=== PATIENT | male | born 1975 | race Two or more races ===

== ENCOUNTER 2019-07-16 06:56 | Inpatient (IN) | payer MEDICAID ==
[~2019-07-16] VITALS: Ht 182.9 cm; Wt 199.8 kg
[2019-07-16] MEDS ORDERED: FUROSEMIDE 40 MG/4 ML VIAL IV ONE (07:15)
[2019-07-16] MEDS ORDERED: IPRATROPIUM BROM 0.5 MG/2.5ML INH SOL NEB ONE (07:15)
[2019-07-16] MEDS ORDERED: ALBUTEROL SULF 2.5 MG/0.5ML(0.5%) NEB SOLN NEB ONE (07:15)
[2019-07-16 07:45] LABS: Basophils # (auto) 0.1 10 ^3/uL (0-0.2); Eosinophils # (auto) 0.2 10 ^3/uL (0-0.8); Lymphocytes # (auto) 2.1 10 ^3/uL (0.4-5.4); Monocytes # (auto) 0.5 10 ^3/uL (0-1.3); Neutrophils # (auto) 5.6 10 ^3/uL (1.6-8.6); Nucleated Red Blood Cells % 0.1 %; White Blood Cell 8.5 10^3/uL (4.4-10.8)
[2019-07-16] MEDS ORDERED: ONDANSETRON HCL 4 MG/2 ML VIAL IV ONE ×2 (07:45→09:15)
[2019-07-16 07:46] LABS: Basophils % (auto) 0.9 % (0.0-2.0); Eosinophils % (auto) 2.6 % (0.0-7.0); Hematocrit 38.2 % (41.0-53.0); Lymphocytes % (auto) 24.5 % (10.0-50.0); Mean Corpuscular Hemoglobin 24.6 pg (28.0-32.0); Mean Corpuscular Hgb Conc. 31.4 g/dL (32.0-36.0); Mean Corpuscular Volume 78.3 fL (80.0-100.0); Monocytes % (auto) 5.7 % (0.0-12.0); Neutrophils % (auto) 66.3 % (37.0-80.0); Platelet Count (auto) 333 10^3/uL (140-450); Red Blood Cells 4.88 10^6/uL (4.5-5.90); Red Cell Distribution Width 16.2 % (11.8-14.3)
[2019-07-16 07:52] LABS: Albumin 3.8 g/dL (3.4-5.0); BUN/Creatinine Ratio 14.6; Calcium 8.9 mg/dL (8.5-10.1); Potassium 3.6 mmol/L (3.5-5.1)
[2019-07-16 07:55] LABS: INR 0.98 (0.9-1.15); Partial Thromboplastin Time 26.4 sec (23.64-32.05)
[2019-07-16 07:57] LABS: Bilirubin, Total 0.2 mg/dL (0.2-1.0); Total Protein 7.8 g/dL (6.4-8.2)
[2019-07-16 08:50] LABS: Urine Bacteria NONE SEEN /hpf (None Seen); Urine Blood Negative /uL (Negative); Urine Specific Gravity 1.007 (1.001-1.035); Urine WBC <1 /hpf (0 - 3)
[2019-07-16] MEDS ORDERED: SERT-274 PO (08:59)
[2019-07-16] MEDS ORDERED: ATOR10TA52 PO (08:59)
[2019-07-16] MEDS ORDERED: METF-370 PO (08:59)
[2019-07-16] MEDS ORDERED: BECL80AE11 IN (08:59)
[2019-07-16] MEDS ORDERED: LOSA-39 PO (08:59)
[2019-07-16] MEDS ORDERED: DULO20CA PO (08:59)
[2019-07-16] MEDS ORDERED: CHLO25TA22 PO (08:59)
[2019-07-16] MEDS ORDERED: PANT-36 PO (08:59)
[2019-07-16] MEDS ORDERED: INSU1INJ19 SC (08:59)
[2019-07-16] MEDS ORDERED: GLIM4TAB42 PO (08:59)
[2019-07-16] MEDS ORDERED: MONT10TA34 PO (08:59)
[2019-07-16] MEDS ORDERED: AMLO5TAB15 PO (08:59)
[2019-07-16] MEDS ORDERED: INSU100I44 SC (08:59)
[2019-07-16] MEDS ORDERED: MORPHINE SULF INJ 2 MG/ML SYRINGE 1ML IV ONE (09:15)
[2019-07-16] MEDS ORDERED: DEXTROSE (50%) 50ML SYRG IV PRN (12:15)
[2019-07-16] MEDS ORDERED: MORPHINE SULF INJ 2 MG/ML SYRINGE 1ML IV PRN (12:15)
[2019-07-16] MEDS ORDERED: NITROGLYCERIN 0.4 MG SL TAB SL PRN (12:15)
[2019-07-16] MEDS ORDERED: CARVEDILOL 3.125 MG TAB PO SCH (12:15)
[2019-07-16] MEDS ORDERED: ASPirin 81 mg TAB PO ONE (12:15)
[2019-07-16] MEDS ORDERED: LORazepam 2MG/ML-1ML VIAL IV PRN (12:15)
[2019-07-16] MEDS ORDERED: MONTELUKAST SODIUM 10 MG TAB PO ONE (12:45)
[2019-07-16] MEDS ORDERED: MULTIPLE VITAMIN TAB PO ONE (12:45)
[2019-07-16] MEDS ORDERED: DULoxetine HCL 30 MG CAP PO ONE (12:45)
[2019-07-16] MEDS ORDERED: THIAMINE HCL 100 MG TAB PO ONE (12:45)
[2019-07-16] MEDS ORDERED: SERTRALINE HCL 50 MG TAB PO ONE (12:45)
[2019-07-16] MEDS ORDERED: PANTOPRAZOLE 40 MG TAB PO ONE (12:45)
[2019-07-16] MEDS ORDERED: ENALAPRIL MALEATE 2.5 MG TAB PO ONE (12:45)
[2019-07-16] MEDS ORDERED: FOLIC ACID 1 MG TAB PO ONE (12:45)
[2019-07-16] MEDS ORDERED: OPTISON 3ml Vial for INJ IV ONE (14:00)
[2019-07-16 17:00] VITALS: BP 160/73
[2019-07-16 17:32] VITALS: BP 132/56
[2019-07-16] MEDS ORDERED: POTA10TA51 PO (17:51)
[2019-07-16] MEDS: ACCU-CHEK COMFORT CURVE STRIP VI SCH ×2 (18:04→22:25)
[2019-07-16] MEDS: FUROSEMIDE 20 MG/2 ML VIAL IV SCH (18:04)
[2019-07-16] MEDS: InsuLIN REG 1unit/0.01ml Soln (100units/ml) SC SCH ×2 (18:12→22:27)
[2019-07-16] MEDS ORDERED: LABETALOL HCL 5 MG/ML 4ML SYRINGE IV PRN (18:45)
[2019-07-16] MEDS ORDERED: LEVALBUTEROL HCL 1.25 MG/3 ML NEB NEB PRN (19:45)
[2019-07-16 20:00] VITALS: BP 142/81
[2019-07-16 21:42] VITALS: BP 160/73
[2019-07-16 22:00] VITALS: BP 142/81
[2019-07-16] MEDS ORDERED: ENALAPRIL MALEATE 2.5 MG TAB PO SCH (22:00)
[2019-07-16] MEDS: CARVEDILOL 3.125 MG TAB PO SCH (22:24)
[2019-07-16] MEDS: ENALAPRIL MALEATE 2.5 MG TAB PO SCH (22:25)
[2019-07-17 05:00] VITALS: BP 139/80
[2019-07-17] MEDS: IPRATROPIUM BROM 0.5 MG/2.5ML INH SOL NEB PRN ×2 (05:06→09:39)
[2019-07-17] MEDS: FUROSEMIDE 20 MG/2 ML VIAL IV SCH ×2 (05:56→17:42)
[2019-07-17] MEDS: ACCU-CHEK COMFORT CURVE STRIP VI SCH ×4 (05:57→21:56)
[2019-07-17] MEDS: InsuLIN REG 1unit/0.01ml Soln (100units/ml) SC SCH ×3 (06:01→17:49)
[2019-07-17 08:01] VITALS: BP 130/76
[2019-07-17 09:00] VITALS: BP 130/76
[2019-07-17] MEDS: BUDESONIDE (INHALATION) 0.5 MG/2 ML NEB NEB SCH ×2 (09:39→19:36)
[2019-07-17] MEDS: ASPirin 81 mg TAB PO SCH (09:53)
[2019-07-17] MEDS: MULTIPLE VITAMIN TAB PO SCH (09:53)
[2019-07-17] MEDS: DULoxetine HCL 30 MG CAP PO SCH (09:53)
[2019-07-17] MEDS: MONTELUKAST SODIUM 10 MG TAB PO SCH (09:54)
[2019-07-17] MEDS: FOLIC ACID 1 MG TAB PO SCH (09:54)
[2019-07-17] MEDS: ENALAPRIL MALEATE 2.5 MG TAB PO SCH ×2 (09:55→21:34)
[2019-07-17] MEDS: CARVEDILOL 3.125 MG TAB PO SCH ×2 (09:55→21:33)
[2019-07-17] MEDS: PANTOPRAZOLE 40 MG TAB PO SCH (10:02)
[2019-07-17] MEDS: SERTRALINE HCL 50 MG TAB PO SCH (10:02)
[2019-07-17] MEDS: THIAMINE HCL 100 MG TAB PO SCH (10:03)
[2019-07-17] MEDS ORDERED: DEXTROSE (50%) 50ML SYRG IV PRN (10:15)
[2019-07-17] MEDS ORDERED: INSULIN LANTUS (GLARGINE) 1 /0.01ml (100units/ml) SC ONE (10:15)
[2019-07-17] MEDS: ACETAMINOPHEN 325 MG TAB PO PRN (11:08)
[2019-07-17 11:25] LABS: Amphetamine Screen, Urine NEGATIVE (NEGATIVE); Barbiturate Scree,Urine NEGATIVE (NEGATIVE); Benzodiazephine Screen, Urine NEGATIVE (NEGATIVE); Cannabinoid Screen, Urine NEGATIVE (NEGATIVE); Cocaine Screen, Urine NEGATIVE (NEGATIVE); Opiate Scree,Urine NEGATIVE (NEGATIVE); Phencyclidine Screen, Urine NEGATIVE (NEGATIVE)
[2019-07-17 13:00] VITALS: BP 110/67
[2019-07-17 17:00] VITALS: BP 103/65
[2019-07-17 18:09] LABS: Free T3 2.71 pg/mL (2.3-4.2)
[2019-07-17] MEDS ORDERED: InsuLIN REG 1unit/0.01ml Soln (100units/ml) SC SCH (22:00)
[2019-07-17 22:19] VITALS: BP 148/84
[2019-07-18 06:12] LABS: Albumin 3.5 g/dL (3.4-5.0); Calcium 8.8 mg/dL (8.5-10.1); Potassium 3.5 mmol/L (3.5-5.1)
[2019-07-18 06:13] VITALS: BP 144/75
[2019-07-18 06:15] LABS: BUN/Creatinine Ratio 16.3; Bilirubin, Total 0.4 mg/dL (0.2-1.0); Total Protein 7.5 g/dL (6.4-8.2)
[2019-07-18 06:25] LABS: Cholesterol 157 mg/dL (< 200); HDL Cholesterol 45 mg/dL (40-59); LDL Cholesterol 103 mg/dL (< 100); Triglycerides 94 mg/dL (< 150)
[2019-07-18] MEDS: FUROSEMIDE 20 MG/2 ML VIAL IV SCH (06:39)
[2019-07-18] MEDS: InsuLIN REG 1unit/0.01ml Soln (100units/ml) SC SCH ×2 (06:40→11:34)
[2019-07-18] MEDS: ACCU-CHEK COMFORT CURVE STRIP VI SCH ×2 (06:41→11:33)
[2019-07-18] MEDS: BUDESONIDE (INHALATION) 0.5 MG/2 ML NEB NEB SCH (06:48)
[2019-07-18 09:00] VITALS: BP 138/83
[2019-07-18] MEDS: ACETAMINOPHEN 325 MG TAB PO PRN (09:05)
[2019-07-18] MEDS: ASPirin 81 mg TAB PO SCH (09:06)
[2019-07-18] MEDS: PANTOPRAZOLE 40 MG TAB PO SCH (09:06)
[2019-07-18] MEDS: MONTELUKAST SODIUM 10 MG TAB PO SCH (09:07)
[2019-07-18] MEDS: SERTRALINE HCL 50 MG TAB PO SCH (09:07)
[2019-07-18] MEDS: DULoxetine HCL 30 MG CAP PO SCH (09:07)
[2019-07-18] MEDS: MULTIPLE VITAMIN TAB PO SCH (09:07)
[2019-07-18] MEDS: FOLIC ACID 1 MG TAB PO SCH (09:08)
[2019-07-18] MEDS: ENALAPRIL MALEATE 2.5 MG TAB PO SCH (09:08)
[2019-07-18] MEDS: THIAMINE HCL 100 MG TAB PO SCH (09:09)
[2019-07-18] MEDS: CARVEDILOL 3.125 MG TAB PO SCH (09:09)
[2019-07-18] MEDS ORDERED: INSULIN LANTUS (GLARGINE) 1 /0.01ml (100units/ml) SC SCH (10:00)
[2019-07-18] MEDS ORDERED: CHLO50TA PO (10:15)
[2019-07-18] MEDS ORDERED: metOLazone 5 MG TAB PO ONE (10:15)
[2019-07-18] MEDS ORDERED: LEV50T PO (10:21)
[2019-07-18 11:23] VITALS: BP 113/70
[2019-07-18 13:00] VITALS: BP 144/75
== END 2019-07-18 13:15 | disposition home or self-care (01) | DRG 194 ==
LOC: ER 06:56 → TELE 06:57 → TELE-EAST 14:32
PROVIDERS: ADMIT Nurse Practitioner Acute Care; ATTEND Internal Medicine
PROC: 5A09357 Assistance with Respiratory Ventilation, Less than 24 Consecutive Hours, Continuous Positive Airway Pressure (ICD-10-PCS; principal; 2019-07-17)
PROC: 5A09357 Assistance with Respiratory Ventilation, Less than 24 Consecutive Hours, Continuous Positive Airway Pressure (ICD-10-PCS; 2019-07-18)
DX: I11.0 Hypertensive heart disease with heart failure (principal); J96.00 Acute respiratory failure, unspecified whether with hypoxia or hypercapnia; I21.A1 Myocardial infarction type 2; E66.01 Morbid (severe) obesity due to excess calories; D50.9 Iron deficiency anemia, unspecified; E11.9 Type 2 diabetes mellitus without complications; E03.9 Hypothyroidism, unspecified; I50.43 Acute on chronic combined systolic (congestive) and diastolic (congestive) heart failure; F10.20 Alcohol dependence, uncomplicated; R00.0 Tachycardia, unspecified; F32.9 Major depressive disorder, single episode, unspecified; R79.89 Other specified abnormal findings of blood chemistry; J44.9 Chronic obstructive pulmonary disease, unspecified; J98.11 Atelectasis; Z68.43 Body mass index [BMI] 50.0-59.9, adult; Z79.84 Long term (current) use of oral hypoglycemic drugs
CPT/HCPCS: 36415; 71045; 76705; 80053; 80061; 80307; 81001; 82962; 83036; 83735; 83880; 84439; 84443; 84481; 84484; 85025; 85379; 85610; 85730; 87804; 93005; 93306; 93970; 94640; 94660; 96374; 96375; 99291; G0378; J1815; J2405; Q9956

== ENCOUNTER 2022-08-27 15:43 | Emergency (ER) | payer MEDICAID ==
[~2022-08-27] VITALS: Ht 182.9 cm; Wt 132.0 kg
[~2022-08-27 15:43] MED LIST: AMLO-489 PO; ATOR10TA52 PO; BECL80AE11 IN; CHLO50TA PO; DULO20CA PO; GLIM4TAB42 PO; INSU100I44 SC; INSU1INJ19 SC; LEV50T PO; LOSA-39 PO; METF-370 PO; MONT-8 PO; PANT40TA57 PO; POTA10TA51 PO; SERT50TA19 PO
[2022-08-27] MEDS ORDERED: LIDOCAINE W/ EPINEPHRINE 2% INJ 20ML VIAL IJ ONE (16:00)
[2022-08-27 16:01] VITALS: BP 111/76
[2022-08-27] MEDS ORDERED: TETANUS-DIPTH-ACEL PERTUSSIS 0.5ML SYR Tdap IM ONE (16:45)
== END 2022-08-27 18:20 | disposition home or self-care (01) ==
LOC: ER 15:43
DX: S51.811A Laceration without foreign body of right forearm, initial encounter (principal); I10 Essential (primary) hypertension; J45.909 Unspecified asthma, uncomplicated; E11.9 Type 2 diabetes mellitus without complications; K21.9 Gastro-esophageal reflux disease without esophagitis; Z79.4 Long term (current) use of insulin; Z79.899 Other long term (current) drug therapy; Z88.0 Allergy status to penicillin; W25.XXXA Contact with sharp glass, initial encounter; Y93.89 Activity, other specified; Y92.89 Other specified places as the place of occurrence of the external cause; Y99.8 Other external cause status
CPT/HCPCS: 12005; 73090

== ENCOUNTER 2022-12-03 08:39 | Emergency (ER) | payer MEDICAID ==
[~2022-12-03] VITALS: Ht 182.9 cm; Wt 140.3 kg
[~2022-12-03 08:39] MED LIST changes: -AMLO-489 PO; +AMLO1TAB22 PO; -INSU100I44 SC; +INSU100I54 SC; -LOSA-39 PO; +LOSA100T58 PO; +SERT-206 PO; -SERT50TA19 PO
[2022-12-03 09:09] LABS: Basophils # (auto) 0.1 10 ^3/uL (0-0.2); Eosinophils # (auto) 0.1 10 ^3/uL (0-0.8)
[2022-12-03 09:12] LABS: Basophils % (auto) 0.6 % (0.0-2.0); Eosinophils % (auto) 0.7 % (0.0-7.0); Hematocrit 42.5 % (41.0-53.0); Hemoglobin 13.2 g/dL (13.5-17.5); Lymphocytes # (auto) 1.2 10 ^3/uL (0.4-5.4); Lymphocytes % (auto) 12.4 % (10.0-50.0); Mean Corpuscular Hemoglobin 24.2 pg (28.0-32.0); Mean Corpuscular Volume 78.1 fL (80.0-100.0); Monocytes # (auto) 0.7 10 ^3/uL (0-1.3); Monocytes % (auto) 6.7 % (0.0-12.0); Neutrophils # (auto) 7.9 10 ^3/uL (1.6-8.6); Neutrophils % (auto) 79.6 % (37.0-80.0); Red Blood Cells 5.44 10^6/uL (4.5-5.90); Red Cell Distribution Width 19.2 % (11.8-14.3)
[2022-12-03] MEDS ORDERED: KETOROLAC TROMETH 60MG/2ML VIAL IM ONE (09:15)
[2022-12-03 09:29] LABS: Albumin 3.6 g/dL (3.4-5.0); Potassium 3.8 mmol/L (3.5-5.1)
[2022-12-03 09:31] LABS: BUN/Creatinine Ratio 15.7 (10.0-20.0); Bilirubin, Total 0.5 mg/dL (0.2-1.0); Total Protein 8.1 g/dL (6.4-8.2)
[2022-12-03 10:23] LABS: Urine Bacteria FEW /hpf (None Seen); Urine Blood Negative /uL (Negative); Urine Mucus FEW (None Seen); Urine Specific Gravity 1.038 (1.001-1.035); Urine WBC 13 /hpf (0 - 3)
[2022-12-03] MEDS ORDERED: CIPR-173 PO (10:57)
[2022-12-03 11:30] VITALS: BP 125/60; PULSE 99; RESP 17; TEMP 98; O2SAT 99
== END 2022-12-03 11:44 | disposition home or self-care (01) ==
LOC: ER 08:39
DX: N39.0 Urinary tract infection, site not specified (principal); R10.9 Unspecified abdominal pain; I10 Essential (primary) hypertension; E11.9 Type 2 diabetes mellitus without complications; K21.9 Gastro-esophageal reflux disease without esophagitis; J45.909 Unspecified asthma, uncomplicated; Z98.890 Other specified postprocedural states; Z88.0 Allergy status to penicillin; Z79.4 Long term (current) use of insulin; Z79.84 Long term (current) use of oral hypoglycemic drugs; Z79.899 Other long term (current) drug therapy
CPT/HCPCS: 36415; 74176; 80053; 81001; 85025; 96372; 99285; J1885

== ENCOUNTER 2022-12-17 21:36 | Inpatient (IN) | payer MEDICAID ==
[~2022-12-17] VITALS: Ht 182.9 cm; Wt 139.1 kg
[~2022-12-17 21:36] MED LIST changes: +CIPR-173 PO; +GABA-339 PO; +TRAM50TA2 PO
[2022-12-17 22:00] VITALS: PULSE 108; RESP 20; O2SAT 95
[2022-12-17] MEDS ORDERED: LORazepam 2MG/ML-1ML VIAL IM ONE (22:15)
[2022-12-17] MEDS ORDERED: diphenhdrAMINE HCL 50 MG/1 ML VL IM ONE (22:15)
[2022-12-17 22:57] LABS: Basophils # (auto) 0.1 10 ^3/uL (0-0.2); Eosinophils # (auto) 0 10 ^3/uL (0-0.8); Eosinophils % (auto) 0.1 % (0.0-7.0)
[2022-12-17 22:59] LABS: Basophils % (auto) 0.5 % (0.0-2.0); Hematocrit 40.3 % (41.0-53.0); Hemoglobin 12.9 g/dL (13.5-17.5); Lymphocytes # (auto) 1.9 10 ^3/uL (0.4-5.4); Lymphocytes % (auto) 9.9 % (10.0-50.0); Mean Corpuscular Hemoglobin 23.8 pg (28.0-32.0); Mean Corpuscular Volume 74.4 fL (80.0-100.0); Monocytes # (auto) 1.4 10 ^3/uL (0-1.3); Monocytes % (auto) 7.7 % (0.0-12.0); Neutrophils # (auto) 15.4 10 ^3/uL (1.6-8.6); Neutrophils % (auto) 81.8 % (37.0-80.0); Nucleated Red Blood Cells % 0.1 %; Red Blood Cells 5.41 10^6/uL (4.5-5.90); Red Cell Distribution Width 18.9 % (11.8-14.3); White Blood Cell 18.9 10^3/uL (4.4-10.8)
[2022-12-17] MEDS ORDERED: HALOPERIDOL LACTATE 5 MG/ML INJ VIAL IM ONE (23:00)
[2022-12-17 23:17] LABS: Alanine Aminotransferase 18 U/L (16-61); Albumin 3.1 g/dL (3.4-5.0); Anion Gap 14 (5-15); Aspartate Aminotransferase 29 U/L (15-37); BUN/Creatinine Ratio 16.1 (10.0-20.0); Blood Alcohol < 3.0 mg/dL (<10); Blood Urea Nitrogen 19 mg/dL (7-18); Carbon Dioxide 21 mmol/L (21-32); Chloride 102 mmol/L (98-107); GFR African American 85 mL/min; GFR Non-African American 70 mL/min; Glucose 154 mg/dL (74-106); Magnesium 1.7 mg/dL (1.6-2.6); Potassium 3.6 mmol/L (3.5-5.1); Sodium 137 mmol/L (136-145)
[2022-12-17 23:20] LABS: Alkaline Phosphatase 95 U/L (45-117); Bilirubin, Total 0.8 mg/dL (0.2-1.0); Total Protein 8.7 g/dL (6.4-8.2)
[2022-12-17] MEDS ORDERED: PIPERACILLIN-TAZOB 3.375GM 100 ML IV ONE (23:30)
[2022-12-17] MEDS ORDERED: LACTATED RINGER S IV ONE (23:30)
[2022-12-17] MEDS ORDERED: VANCOMYCIN 1GM/250ML 250 ML IV ONE (23:30)
[2022-12-18] VITALS (95 sets, daily range): BP systolic 89–197; BP diastolic 43–98; PULSE 83–114; RESP 9–26; TEMP 98.4–99.5; O2SAT 95–100
[2022-12-18] MEDS ORDERED: MIDAZOLAM HCL 5 MG/ML-1ML VIAL IM ONE
[2022-12-18 00:08] LABS: Urine Bacteria FEW /hpf (None Seen); Urine Blood Negative /uL (Negative); Urine Clarity Clear (Clear); Urine Color Yellow (Yellow); Urine Hyaline Cast FEW /lpf (0 - 2); Urine Protein, UAD TRACE (Negative); Urine Specific Gravity 1.016 (1.001-1.035); Urine WBC 1 /hpf (0 - 3)
[2022-12-18 00:13] LABS: Alcohol, Urine < 3.0 mg/dL (0-10); Amphetamine Screen, Urine NEGATIVE (NEGATIVE); Barbiturate Scree,Urine NEGATIVE (NEGATIVE); Benzodiazephine Screen, Urine NEGATIVE (NEGATIVE); Cannabinoid Screen, Urine NEGATIVE (NEGATIVE); Cocaine Screen, Urine NEGATIVE (NEGATIVE)
[2022-12-18] MEDS ORDERED: MIDAZOLAM HCL 5 MG/ML-1ML VIAL IV ONE (00:15)
[2022-12-18 00:22] LABS: Opiate Scree,Urine POSITIVE (NEGATIVE); Phencyclidine Screen, Urine NEGATIVE (NEGATIVE)
[2022-12-18] MEDS ORDERED: ROCURONIUM 10MG/ML 10ML VIAL IV ONE (00:45)
[2022-12-18] MEDS ORDERED: ETOMIDATE (2MG/ML) 20ML VIAL IV ONE (00:45)
[2022-12-18 00:46] LABS: Lactic Acid w/Reflex 3.3 mmol/L (0.4-2.0)
[2022-12-18] MEDS ORDERED: fentaNYL Drip 2500mCg/250mlNS 250 ML IV ONE (00:58)
[2022-12-18] MEDS: fentaNYL Drip 2500mCg/250mlNS 250 ML IV SCH ×3 (01:02→23:21)
[2022-12-18] MEDS ORDERED: VANCOMYCIN PER PHARMACY 0 MG IV SCH (01:45)
[2022-12-18] MEDS ORDERED: NITROGLYCERIN 0.4 MG SL TAB SL PRN (01:45)
[2022-12-18] MEDS ORDERED: hydrALAZINE HCL 20 MG/ML VL IV PRN (01:45)
[2022-12-18] MEDS ORDERED: DEXTROSE (50%) 50ML SYRG IV PRN (01:45)
[2022-12-18] MEDS ORDERED: ONDANSETRON HCL 4 MG/2 ML VIAL IV PRN (01:45)
[2022-12-18] MEDS: PROPOFOL 100 ML IV SCH ×4 (01:52→20:08)
[2022-12-18 02:19] LABS: Base Excess -3.9 mmol/L (-2.0-2.0)
[2022-12-18] MEDS ORDERED: IOHEXOL 350 MG/ML 100ML IJ ONE (03:14)
[2022-12-18] MEDS: SODIUM CHLORIDE 0.9% 1,000 ML IV SCH (05:34)
[2022-12-18] MEDS: InsuLIN REG 1unit/0.01ml Soln (100units/ml) SC SCH ×4 (05:53→23:28)
[2022-12-18] MEDS: ACCU-CHEK COMFORT CURVE STRIP VI SCH ×4 (05:53→23:28)
[2022-12-18] MEDS ORDERED: LACTULOSE 10g/15ml SOLN 473ML PR SCH (06:00)
[2022-12-18] MEDS: LACTULOSE 20Gm/30ML SOLN NG SCH ×3 (06:34→23:22)
[2022-12-18 07:39] LABS: Basophils # (auto) 0.1 10 ^3/uL (0-0.2); Basophils % (auto) 0.4 % (0.0-2.0); Eosinophils # (auto) 0.1 10 ^3/uL (0-0.8); Eosinophils % (auto) 0.6 % (0.0-7.0); Hemoglobin 11.6 g/dL (13.5-17.5); Lymphocytes # (auto) 1.8 10 ^3/uL (0.4-5.4); Lymphocytes % (auto) 12.4 % (10.0-50.0); Mean Corpuscular Hemoglobin 23.6 pg (28.0-32.0); Mean Corpuscular Hgb Conc. 31.4 g/dL (32.0-36.0); Mean Corpuscular Volume 75.1 fL (80.0-100.0); Monocytes # (auto) 1.3 10 ^3/uL (0-1.3); Monocytes % (auto) 9.1 % (0.0-12.0); Neutrophils # (auto) 11.2 10 ^3/uL (1.6-8.6); Neutrophils % (auto) 77.5 % (37.0-80.0); Nucleated Red Blood Cells % 0.2 %; Red Blood Cells 4.93 10^6/uL (4.5-5.90); Red Cell Distribution Width 18.7 % (11.8-14.3); White Blood Cell 14.5 10^3/uL (4.4-10.8)
[2022-12-18 07:44] LABS: Albumin 2.5 g/dL (3.4-5.0); Calcium 9.3 mg/dL (8.5-10.1); Potassium 3.8 mmol/L (3.5-5.1)
[2022-12-18 07:48] LABS: BUN/Creatinine Ratio 18.7 (10.0-20.0); Bilirubin, Total 0.5 mg/dL (0.2-1.0); Total Protein 7.5 g/dL (6.4-8.2)
[2022-12-18 08:50] LABS: Base Excess -1.6 mmol/L (-2.0-2.0)
[2022-12-18] MEDS ORDERED: VANCOMYCIN 1GM/250ML 250 ML IV SCH (09:00)
[2022-12-18] MEDS: MIDAZOLAM DRIP 50 mg/50mL 50 ML IV SCH (10:30)
[2022-12-18] MEDS: PHENYLEPHRINE IV 250 ML IV SCH (10:30)
[2022-12-18] MEDS: FAMOTIDINE (10MG/ML) 2ML VL IV SCH ×2 (10:42→23:21)
[2022-12-18] MEDS: ENOXAPARIN SOD 40 MG/0.4 ML SYRINGE SC SCH (10:42)
[2022-12-18] MEDS: levoFLOXacin 500MG 100 ML IV SCH (10:42)
[2022-12-18] MEDS ORDERED: MIDAZOLAM HCL 2MG/2ML 2ml VIAL (1mg/ml) IV PRN (11:30)
[2022-12-18] MEDS ORDERED: MAGNESIUM SULFATE 1GM/100ML 100 ML IV ONE (11:45)
[2022-12-18] MEDS ORDERED: OPTISON 3ml Vial for INJ IV ONE (14:39)
[2022-12-18] MEDS: VANCOMYCIN 1GM/250ML 250 ML IV SCH (17:37)
[2022-12-19] VITALS (34 sets, daily range): BP systolic 102–162; BP diastolic 56–88; PULSE 81–103; RESP 10–22; TEMP 99.5–100.4; O2SAT 90–100
[2022-12-19] MEDS: VANCOMYCIN 1GM/250ML 250 ML IV SCH ×3 (01:15→17:07)
[2022-12-19] MEDS: PHENYLEPHRINE IV 250 ML IV SCH ×3 (03:10→19:50)
[2022-12-19] MEDS: PROPOFOL 100 ML IV SCH ×2 (03:32→07:53)
[2022-12-19 03:36] LABS: Basophils # (auto) 0.1 10 ^3/uL (0-0.2); Basophils % (auto) 0.6 % (0.0-2.0); Eosinophils # (auto) 0.3 10 ^3/uL (0-0.8); Eosinophils % (auto) 2.5 % (0.0-7.0); Hematocrit 36.9 % (41.0-53.0); Hemoglobin 11.4 g/dL (13.5-17.5); Lymphocytes # (auto) 1.7 10 ^3/uL (0.4-5.4); Mean Corpuscular Hemoglobin 23.5 pg (28.0-32.0); Mean Corpuscular Hgb Conc. 30.9 g/dL (32.0-36.0); Monocytes # (auto) 0.9 10 ^3/uL (0-1.3); Monocytes % (auto) 8.1 % (0.0-12.0); Neutrophils # (auto) 8.2 10 ^3/uL (1.6-8.6); Neutrophils % (auto) 73.8 % (37.0-80.0); Red Blood Cells 4.85 10^6/uL (4.5-5.90); Red Cell Distribution Width 18.9 % (11.8-14.3); White Blood Cell 11.1 10^3/uL (4.4-10.8)
[2022-12-19] MEDS: SODIUM CHLORIDE 0.9% 1,000 ML IV SCH ×2 (03:36→11:05)
[2022-12-19 04:11] LABS: Albumin 2.5 g/dL (3.4-5.0); BUN/Creatinine Ratio 19.3 (10.0-20.0); Calcium 9.5 mg/dL (8.5-10.1); Potassium 3.7 mmol/L (3.5-5.1)
[2022-12-19 04:21] LABS: Bilirubin, Total 0.3 mg/dL (0.2-1.0); Total Protein 7.8 g/dL (6.4-8.2)
[2022-12-19] MEDS: InsuLIN REG 1unit/0.01ml Soln (100units/ml) SC SCH ×4 (06:00→23:45)
[2022-12-19] MEDS: ACCU-CHEK COMFORT CURVE STRIP VI SCH ×4 (06:11→23:45)
[2022-12-19] MEDS: fentaNYL Drip 2500mCg/250mlNS 250 ML IV SCH (06:25)
[2022-12-19] MEDS: LACTULOSE 20Gm/30ML SOLN NG SCH ×4 (06:25→23:45)
[2022-12-19] MEDS: ENOXAPARIN SOD 40 MG/0.4 ML SYRINGE SC SCH (10:00)
[2022-12-19] MEDS: levoFLOXacin 500MG 100 ML IV SCH (10:00)
[2022-12-19] MEDS: FAMOTIDINE (10MG/ML) 2ML VL IV SCH (10:00)
[2022-12-19] MEDS: MIDAZOLAM DRIP 50 mg/50mL 50 ML IV SCH (10:30)
[2022-12-19] MEDS ORDERED: SODIUM BICARBONATE 8.4 % INJ 50ML VIAL IV ONE (11:15)
[2022-12-19] MEDS: HYDROcodone-ACET 5/325MG TAB PO PRN ×2 (15:29→23:43)
[2022-12-19] MEDS: CYCLOBENZAPRINE HCL 10 MG TAB PO PRN (15:29)
[2022-12-19] MEDS: GABAPENTIN 300 MG CAP PO SCH (16:35)
[2022-12-19] MEDS: traMADol HCL 50 MG TAB PO SCH (17:00)
[2022-12-19] MEDS: MORPHINE SULFATE INJ 2 MG/ml SYRG IV PRN ×2 (18:34→21:24)
[2022-12-19] MEDS: GLIMEPIRIDE 2 MG TAB PO SCH (22:00)
[2022-12-20] VITALS (22 sets, daily range): BP systolic 109–144; BP diastolic 59–85; PULSE 86–98; RESP 11–28; TEMP 98.6–100.4; O2SAT 85–100
[2022-12-20] MEDS: VANCOMYCIN 1GM/250ML 250 ML IV SCH ×2 (00:57→08:47)
[2022-12-20] MEDS: SODIUM CHLORIDE 0.9% 1,000 ML IV SCH ×2 (03:45→19:57)
[2022-12-20] MEDS: PHENYLEPHRINE IV 250 ML IV SCH ×4 (04:10→23:52)
[2022-12-20] MEDS: MORPHINE SULFATE INJ 2 MG/ml SYRG IV PRN ×3 (04:37→22:02)
[2022-12-20] MEDS: traMADol HCL 50 MG TAB PO SCH ×3 (05:37→21:30)
[2022-12-20] MEDS: LACTULOSE 20Gm/30ML SOLN NG SCH ×4 (05:38→23:51)
[2022-12-20] MEDS: InsuLIN REG 1unit/0.01ml Soln (100units/ml) SC SCH ×3 (05:43→17:59)
[2022-12-20] MEDS: ACCU-CHEK COMFORT CURVE STRIP VI SCH ×3 (05:43→17:23)
[2022-12-20] MEDS: HYDROcodone-ACET 5/325MG TAB PO PRN ×2 (08:41→17:22)
[2022-12-20] MEDS: MIDAZOLAM DRIP 50 mg/50mL 50 ML IV SCH (10:30)
[2022-12-20 11:17] LABS: Base Excess -3.5 mmol/L (-2.0-2.0)
[2022-12-20 11:25] LABS: Base Excess -1.6 mmol/L (-2.0-2.0)
[2022-12-20] MEDS: levoFLOXacin 500MG 100 ML IV SCH (11:27)
[2022-12-20] MEDS: ENOXAPARIN SOD 40 MG/0.4 ML SYRINGE SC SCH (11:27)
[2022-12-20] MEDS: SERTRALINE HCL 50 MG TAB PO SCH (11:29)
[2022-12-20] MEDS: LORATADINE 10 MG TAB PO SCH (11:29)
[2022-12-20] MEDS: PANTOPRAZOLE 40 MG TAB PO SCH (11:29)
[2022-12-20] MEDS: GLIMEPIRIDE 2 MG TAB PO SCH ×2 (11:32→21:58)
[2022-12-20] MEDS: MULTIPLE VITAMIN TAB PO SCH (11:33)
[2022-12-20] MEDS: GABAPENTIN 300 MG CAP PO SCH ×2 (11:33→21:30)
[2022-12-20] MEDS: POTASSIUM CHL 10 Meq TABLET PO SCH (11:33)
[2022-12-20] MEDS ORDERED: DOXYCYCLINE 100MG/250ML 250 ML IV SCH (17:15)
[2022-12-20] MEDS ORDERED: LORazepam 2MG/ML-1ML VIAL IV PRN (19:45)
[2022-12-20] MEDS: CYCLOBENZAPRINE HCL 10 MG TAB PO PRN (19:54)
[2022-12-20] MEDS: DOXYCYCLINE 100 MG TAB/CAP PO SCH (21:30)
[2022-12-20] MEDS: PROPOFOL 100 ML IV SCH (23:51)
[2022-12-20] MEDS: fentaNYL Drip 2500mCg/250mlNS 250 ML IV SCH (23:51)
[2022-12-21] VITALS (24 sets, daily range): BP systolic 103–141; BP diastolic 56–81; PULSE 79–99; RESP 12–23; TEMP 98.2–98.6; O2SAT 77–100
[2022-12-21] MEDS: MORPHINE SULFATE INJ 2 MG/ml SYRG IV PRN ×4 (03:42→16:41)
[2022-12-21] MEDS: LACTULOSE 20Gm/30ML SOLN NG SCH ×4 (06:00→23:48)
[2022-12-21] MEDS: traMADol HCL 50 MG TAB PO SCH ×3 (06:15→22:34)
[2022-12-21] MEDS: ACCU-CHEK COMFORT CURVE STRIP VI SCH ×5 (06:15→23:49)
[2022-12-21] MEDS: InsuLIN REG 1unit/0.01ml Soln (100units/ml) SC SCH ×5 (06:27→23:54)
[2022-12-21] MEDS: HYDROcodone-ACET 5/325MG TAB PO PRN ×2 (08:06→19:37)
[2022-12-21] MEDS: ENOXAPARIN SOD 40 MG/0.4 ML SYRINGE SC SCH (09:08)
[2022-12-21] MEDS: DOXYCYCLINE 100 MG TAB/CAP PO SCH (09:08)
[2022-12-21] MEDS: MULTIPLE VITAMIN TAB PO SCH (09:09)
[2022-12-21] MEDS: SERTRALINE HCL 50 MG TAB PO SCH (09:09)
[2022-12-21] MEDS: PANTOPRAZOLE 40 MG TAB PO SCH (09:09)
[2022-12-21] MEDS: LORATADINE 10 MG TAB PO SCH (09:09)
[2022-12-21] MEDS: GABAPENTIN 300 MG CAP PO SCH ×2 (09:09→22:34)
[2022-12-21] MEDS: POTASSIUM CHL 10 Meq TABLET PO SCH (09:10)
[2022-12-21] MEDS: GLIMEPIRIDE 2 MG TAB PO SCH ×2 (09:17→22:35)
[2022-12-21] MEDS: MIDAZOLAM DRIP 50 mg/50mL 50 ML IV SCH (09:45)
[2022-12-21] MEDS: SODIUM CHLORIDE 0.9% 1,000 ML IV SCH ×2 (13:05→18:18)
[2022-12-21] MEDS: PHENYLEPHRINE IV 250 ML IV SCH ×3 (13:30→23:49)
[2022-12-21] MEDS ORDERED: VANCOMYCIN 1GM/250ML 250 ML IV ONE (14:00)
[2022-12-21] MEDS ORDERED: VANCOMYCIN PER PHARMACY 0 MG IV SCH (14:00)
[2022-12-21] MEDS ORDERED: levoFLOXacin 500MG 100 ML IV SCH (16:00)
[2022-12-21] MEDS ORDERED: VANCOMYCIN 1GM/250ML 250 ML IV SCH (22:00)
[2022-12-21] MEDS: fentaNYL Drip 2500mCg/250mlNS 250 ML IV SCH (23:49)
[2022-12-21] MEDS: PROPOFOL 100 ML IV SCH (23:49)
[2022-12-22] VITALS (25 sets, daily range): BP systolic 98–135; BP diastolic 58–87; PULSE 79–99; RESP 13–26; TEMP 98–98.3; O2SAT 92–100
[2022-12-22] MEDS: MORPHINE SULFATE INJ 2 MG/ml SYRG IV PRN ×4 (03:16→19:44)
[2022-12-22] MEDS: LACTULOSE 20Gm/30ML SOLN NG SCH ×3 (05:57→18:00)
[2022-12-22] MEDS: traMADol HCL 50 MG TAB PO SCH ×3 (06:04→22:09)
[2022-12-22] MEDS: ACCU-CHEK COMFORT CURVE STRIP VI SCH ×3 (06:04→18:00)
[2022-12-22] MEDS: HYDROcodone-ACET 5/325MG TAB PO PRN ×2 (06:05→17:37)
[2022-12-22] MEDS: InsuLIN REG 1unit/0.01ml Soln (100units/ml) SC SCH ×3 (06:12→18:00)
[2022-12-22] MEDS: LORATADINE 10 MG TAB PO SCH (09:59)
[2022-12-22] MEDS: ENOXAPARIN SOD 40 MG/0.4 ML SYRINGE SC SCH (09:59)
[2022-12-22] MEDS: POTASSIUM CHL 10 Meq TABLET PO SCH (09:59)
[2022-12-22] MEDS: PANTOPRAZOLE 40 MG TAB PO SCH (09:59)
[2022-12-22] MEDS: MULTIPLE VITAMIN TAB PO SCH (09:59)
[2022-12-22] MEDS: GABAPENTIN 300 MG CAP PO SCH ×2 (09:59→22:10)
[2022-12-22] MEDS ORDERED: levoFLOXacin 500MG 100 ML IV SCH (10:00)
[2022-12-22] MEDS: SERTRALINE HCL 50 MG TAB PO SCH (10:00)
[2022-12-22] MEDS: GLIMEPIRIDE 2 MG TAB PO SCH ×2 (10:06→22:11)
[2022-12-22] MEDS: MIDAZOLAM DRIP 50 mg/50mL 50 ML IV SCH (10:30)
[2022-12-22] MEDS: PHENYLEPHRINE IV 250 ML IV SCH ×2 (14:30→22:50)
[2022-12-22] MEDS: SODIUM CHLORIDE 0.9% 1,000 ML IV SCH (22:15)
[2022-12-22] MEDS: CYCLOBENZAPRINE HCL 10 MG TAB PO PRN (22:51)
[2022-12-23] VITALS (20 sets, daily range): BP systolic 101–135; BP diastolic 59–93; PULSE 77–101; RESP 14–24; TEMP 97.5–98.2; O2SAT 91–100
[2022-12-23] MEDS: ACCU-CHEK COMFORT CURVE STRIP VI SCH ×4 (00:06→17:46)
[2022-12-23] MEDS: InsuLIN REG 1unit/0.01ml Soln (100units/ml) SC SCH ×4 (00:10→17:46)
[2022-12-23] MEDS: MORPHINE SULFATE INJ 2 MG/ml SYRG IV PRN ×6 (00:11→15:53)
[2022-12-23] MEDS: fentaNYL Drip 2500mCg/250mlNS 250 ML IV SCH (00:45)
[2022-12-23] MEDS: PROPOFOL 100 ML IV SCH (01:45)
[2022-12-23] MEDS: HYDROcodone-ACET 5/325MG TAB PO PRN ×2 (02:39→11:07)
[2022-12-23 04:22] LABS: Basophils # (auto) 0.1 10 ^3/uL (0-0.2); Eosinophils # (auto) 0.4 10 ^3/uL (0-0.8); Lymphocytes # (auto) 1.9 10 ^3/uL (0.4-5.4); Monocytes # (auto) 0.6 10 ^3/uL (0-1.3); White Blood Cell 9.5 10^3/uL (4.4-10.8)
[2022-12-23 04:26] LABS: Basophils % (auto) 0.6 % (0.0-2.0); Eosinophils % (auto) 3.9 % (0.0-7.0); Hematocrit 39.8 % (41.0-53.0); Hemoglobin 12.8 g/dL (13.5-17.5); Lymphocytes % (auto) 19.8 % (10.0-50.0); Mean Corpuscular Hemoglobin 23.9 pg (28.0-32.0); Mean Corpuscular Hgb Conc. 32.1 g/dL (32.0-36.0); Mean Corpuscular Volume 74.5 fL (80.0-100.0); Monocytes % (auto) 6.4 % (0.0-12.0); Neutrophils # (auto) 6.6 10 ^3/uL (1.6-8.6); Neutrophils % (auto) 69.3 % (37.0-80.0); Nucleated Red Blood Cells % 0.1 %; Red Blood Cells 5.34 10^6/uL (4.5-5.90); Red Cell Distribution Width 18.4 % (11.8-14.3)
[2022-12-23 04:35] LABS: INR 1.21 (0.9-1.15); Partial Thromboplastin Time 33.2 SEC (24.5-34.5); Prothrombin Time 12.5 sec (9.3-11.8)
[2022-12-23 04:43] LABS: Calcium 9.9 mg/dL (8.5-10.1); Potassium 3.6 mmol/L (3.5-5.1)
[2022-12-23 04:49] LABS: Albumin 2.7 g/dL (3.4-5.0); BUN/Creatinine Ratio 18.1 (10.0-20.0); Bilirubin, Total 0.3 mg/dL (0.2-1.0); Total Protein 8.8 g/dL (6.4-8.2)
[2022-12-23] MEDS: traMADol HCL 50 MG TAB PO SCH ×2 (05:51→13:51)
[2022-12-23] MEDS: LACTULOSE 20Gm/30ML SOLN NG SCH ×4 (05:51→17:46)
[2022-12-23] MEDS: PHENYLEPHRINE IV 250 ML IV SCH (07:10)
[2022-12-23] MEDS: CYCLOBENZAPRINE HCL 10 MG TAB PO PRN (07:50)
[2022-12-23] MEDS: POTASSIUM CHL 10 Meq TABLET PO SCH (09:12)
[2022-12-23] MEDS: LORATADINE 10 MG TAB PO SCH (09:12)
[2022-12-23] MEDS: GLIMEPIRIDE 2 MG TAB PO SCH ×2 (09:12→22:00)
[2022-12-23] MEDS: MULTIPLE VITAMIN TAB PO SCH (09:13)
[2022-12-23] MEDS: GABAPENTIN 300 MG CAP PO SCH (09:13)
[2022-12-23] MEDS: SERTRALINE HCL 50 MG TAB PO SCH (09:14)
[2022-12-23] MEDS: ENOXAPARIN SOD 40 MG/0.4 ML SYRINGE SC SCH (09:14)
[2022-12-23] MEDS: PANTOPRAZOLE 40 MG TAB PO SCH (09:14)
[2022-12-23] MEDS: SODIUM CHLORIDE 0.9% 1,000 ML IV SCH (13:51)
[2022-12-23] MEDS ORDERED: PROPOFOL 10 MG/ML 20 ML IV ONE ×2 (17:55→18:08)
[2022-12-23] MEDS ORDERED: ACETAMINOPHEN IV 100 ML IV ONE (17:58)
[2022-12-23] MEDS ORDERED: GABAPENTIN 300 MG CAP PO ONE (18:00)
[2022-12-23] MEDS ORDERED: ACETAMINOPHEN IV 1000 MG/100ML (10MG/ML) IV ONE (18:00)
[2022-12-23] MEDS ORDERED: ROCURONIUM 10MG/ML 10ML VIAL IV ONE (18:08)
[2022-12-23] MEDS ORDERED: GLYCOPYRROLATE 0.2 MG/ML 1ML VIAL ONE (18:08)
[2022-12-23] MEDS ORDERED: DexAMETHasone SOD PHOS 10MG/1ML VIAL INJ ONE (18:08)
[2022-12-23] MEDS ORDERED: ONDANSETRON HCL 4 MG/2 ML VIAL ONE (18:08)
[2022-12-23] MEDS ORDERED: fentaNYL CITRATE 100 MCG/2 ML VL ONE (18:09)
[2022-12-23] MEDS ORDERED: PHENYLEPHRINE HCL 10 MG/ML VL IV ONE (18:40)
[2022-12-23] MEDS ORDERED: KETAMINE 50mg/ML 10ml Vial (500mg/10ml) IV ONE (18:40)
[2022-12-23] MEDS ORDERED: TRANEXAMIC ACID 20 ML ONE (19:00)
[2022-12-23] MEDS ORDERED: cefTRIAXone 1GM/50ML D5W 50 ML IV ONE (19:01)
[2022-12-23] MEDS ORDERED: VANCOMYCIN HCL 1000 MG VL ONE (19:01)
[2022-12-23] MEDS ORDERED: SUGAMMADEX 200mg/2ml Vial (100MG/ML) IV ONE (19:40)
[2022-12-23] MEDS ORDERED: POVIDONE IODINE 10 % TOPICAL OINT 30GM TOP ONE (20:14)
[2022-12-23] MEDS ORDERED: HYDROmorphone HCL 2 MG/ML VL/or syr IV PRN (20:45)
[2022-12-23] MEDS ORDERED: FLUMAZENIL 0.1 MG/ML INJ 10ML MDV IV PRN (20:45)
[2022-12-23] MEDS ORDERED: ePHEDrine SULFATE 50 MG/ML AMP IV PRN (20:45)
[2022-12-23] MEDS ORDERED: fentaNYL CITRATE 100 MCG/2 ML VL IV PRN (20:45)
[2022-12-23] MEDS ORDERED: NALOXONE HCL 0.4 MG/ML VIAL IV PRN (20:45)
[2022-12-23] MEDS ORDERED: hydrALAZINE HCL 20 MG/ML VL IV PRN (20:45)
[2022-12-23] MEDS ORDERED: LABETALOL HCL 5 MG/ML 4ML SYRINGE IV PRN (20:45)
[2022-12-23] MEDS ORDERED: ONDANSETRON HCL 4 MG/2 ML VIAL IV PRN (20:45)
[2022-12-24] VITALS (7 sets, daily range): BP systolic 112–146; BP diastolic 63–86; PULSE 81–100; RESP 18–20; TEMP 97.9–98.6; O2SAT 92–97
[2022-12-24] MEDS: GABAPENTIN 300 MG CAP PO SCH ×3 (00:04→21:39)
[2022-12-24] MEDS: traMADol HCL 50 MG TAB PO SCH ×4 (00:04→21:39)
[2022-12-24] MEDS: ACCU-CHEK COMFORT CURVE STRIP VI SCH ×5 (00:04→23:57)
[2022-12-24] MEDS: InsuLIN REG 1unit/0.01ml Soln (100units/ml) SC SCH ×4 (00:10→18:00)
[2022-12-24] MEDS ORDERED: SEMA2INJ3 SC (05:06)
[2022-12-24] MEDS: LACTULOSE 20Gm/30ML SOLN NG SCH ×5 (06:00→23:57)
[2022-12-24] MEDS: CYCLOBENZAPRINE HCL 10 MG TAB PO PRN (06:48)
[2022-12-24] MEDS: SODIUM CHLORIDE 0.9% 1,000 ML IV SCH (07:11)
[2022-12-24] MEDS ORDERED: CEFTRIAXONE SODIUM 2 GM in D5W 5% 100 ML IV ONE (10:15)
[2022-12-24] MEDS ORDERED: VANCOMYCIN PER PHARMACY 0 MG IV SCH (10:15)
[2022-12-24] MEDS: LORATADINE 10 MG TAB PO SCH (10:23)
[2022-12-24] MEDS: PANTOPRAZOLE 40 MG TAB PO SCH (10:23)
[2022-12-24] MEDS: MULTIPLE VITAMIN TAB PO SCH (10:23)
[2022-12-24] MEDS: ENOXAPARIN SOD 40 MG/0.4 ML SYRINGE SC SCH (10:23)
[2022-12-24] MEDS: SERTRALINE HCL 50 MG TAB PO SCH (10:24)
[2022-12-24] MEDS: POTASSIUM CHL 10 Meq TABLET PO SCH (10:24)
[2022-12-24] MEDS: GLIMEPIRIDE 2 MG TAB PO SCH ×2 (10:33→21:50)
[2022-12-24] MEDS: oxyCODONE HCL 5MG TAB PO PRN (10:41)
[2022-12-24] MEDS ORDERED: VANCOMYCIN 1GM/250ML 250 ML IV ONE (10:45)
[2022-12-24] MEDS: VANCOMYCIN 1GM/250ML 250 ML IV SCH ×2 (12:49→14:40)
[2022-12-25] VITALS (7 sets, daily range): BP systolic 97–127; BP diastolic 47–79; PULSE 90–106; RESP 18–22; TEMP 98–98.6; O2SAT 95–100
[2022-12-25] MEDS: InsuLIN REG 1unit/0.01ml Soln (100units/ml) SC SCH ×5 (00:01→23:49)
[2022-12-25] MEDS: oxyCODONE HCL 5MG TAB PO PRN ×2 (00:05→09:13)
[2022-12-25] MEDS: SODIUM CHLORIDE 0.9% 1,000 ML IV SCH ×2 (01:16→16:53)
[2022-12-25] MEDS: VANCOMYCIN 1GM/250ML 250 ML IV SCH ×4 (01:16→22:49)
[2022-12-25] MEDS: LACTULOSE 20Gm/30ML SOLN NG SCH ×5 (06:00→23:35)
[2022-12-25] MEDS: traMADol HCL 50 MG TAB PO SCH ×3 (06:03→22:28)
[2022-12-25] MEDS: ACCU-CHEK COMFORT CURVE STRIP VI SCH ×4 (06:03→23:48)
[2022-12-25] MEDS: PANTOPRAZOLE 40 MG TAB PO SCH (09:12)
[2022-12-25] MEDS: LORATADINE 10 MG TAB PO SCH (09:12)
[2022-12-25] MEDS: POTASSIUM CHL 10 Meq TABLET PO SCH (09:12)
[2022-12-25] MEDS: SERTRALINE HCL 50 MG TAB PO SCH (09:12)
[2022-12-25] MEDS: MULTIPLE VITAMIN TAB PO SCH (09:12)
[2022-12-25] MEDS: GLIMEPIRIDE 2 MG TAB PO SCH ×2 (09:13→22:35)
[2022-12-25] MEDS: GABAPENTIN 300 MG CAP PO SCH ×2 (09:13→22:28)
[2022-12-25] MEDS: ENOXAPARIN SOD 40 MG/0.4 ML SYRINGE SC SCH (09:20)
[2022-12-25] MEDS: CEFTRIAXONE SODIUM 2 GM in D5W 5% 100 ML IV SCH (10:33)
[2022-12-25] MEDS: HYDROmorphone HCL 2 MG/ML VL/or syr IV PRN ×3 (14:38→23:51)
[2022-12-25 18:16] LABS: Calcium 9.1 mg/dL (8.5-10.1); Potassium 3.6 mmol/L (3.5-5.1)
[2022-12-25] MEDS: POLYETHYLENE GLYCOL 17 GM PWDR PO PRN (22:28)
[2022-12-26] VITALS (7 sets, daily range): BP systolic 107–144; BP diastolic 44–73; PULSE 88–95; RESP 18–20; TEMP 97.7–98.1; O2SAT 96–99
[2022-12-26] MEDS: HYDROmorphone HCL 2 MG/ML VL/or syr IV PRN ×5 (04:29→23:11)
[2022-12-26] MEDS: VANCOMYCIN 1GM/250ML 250 ML IV SCH ×3 (04:42→21:10)
[2022-12-26] MEDS: LACTULOSE 20Gm/30ML SOLN NG SCH ×4 (05:43→23:18)
[2022-12-26] MEDS: ACCU-CHEK COMFORT CURVE STRIP VI SCH ×4 (06:04→23:18)
[2022-12-26] MEDS: traMADol HCL 50 MG TAB PO SCH ×3 (06:04→21:13)
[2022-12-26] MEDS: InsuLIN REG 1unit/0.01ml Soln (100units/ml) SC SCH ×4 (06:08→23:19)
[2022-12-26] MEDS: TAMSULOSIN HYDROCHLORIDE 0.4 MG CAP PO SCH ×2 (08:56→10:00)
[2022-12-26] MEDS: SERTRALINE HCL 50 MG TAB PO SCH (08:56)
[2022-12-26] MEDS: MULTIPLE VITAMIN TAB PO SCH (08:56)
[2022-12-26] MEDS: POTASSIUM CHL 10 Meq TABLET PO SCH (08:57)
[2022-12-26] MEDS: GABAPENTIN 300 MG CAP PO SCH ×2 (08:57→21:14)
[2022-12-26] MEDS: LORATADINE 10 MG TAB PO SCH (08:57)
[2022-12-26] MEDS: PANTOPRAZOLE 40 MG TAB PO SCH (08:57)
[2022-12-26] MEDS: ENOXAPARIN SOD 40 MG/0.4 ML SYRINGE SC SCH (08:58)
[2022-12-26] MEDS: CEFTRIAXONE SODIUM 2 GM in D5W 5% 100 ML IV SCH (08:58)
[2022-12-26] MEDS: GLIMEPIRIDE 2 MG TAB PO SCH ×2 (09:35→21:18)
[2022-12-26] MEDS: SODIUM CHLORIDE 0.9% 1,000 ML IV SCH ×2 (09:45→18:11)
[2022-12-26] MEDS: DOCUSATE SOD 100 MG CAP PO PRN (11:42)
[2022-12-26] MEDS: POLYETHYLENE GLYCOL 17 GM PWDR PO PRN (11:42)
[2022-12-26] MEDS: oxyCODONE HCL 5MG TAB PO PRN (16:16)
[2022-12-26] MEDS: CYCLOBENZAPRINE HCL 10 MG TAB PO PRN (17:15)
[2022-12-27] VITALS (7 sets, daily range): BP systolic 106–147; BP diastolic 44–66; PULSE 85–96; RESP 16–19; TEMP 98.1–99.4; O2SAT 93–96
[2022-12-27] MEDS: HYDROmorphone HCL 2 MG/ML VL/or syr IV PRN ×6 (02:35→21:43)
[2022-12-27 04:41] LABS: Basophils # (auto) 0.1 10 ^3/uL (0-0.2); Red Blood Cells 4.46 10^6/uL (4.5-5.90)
[2022-12-27 04:46] LABS: Basophils % (auto) 1.3 % (0.0-2.0); Eosinophils # (auto) 0.3 10 ^3/uL (0-0.8); Eosinophils % (auto) 2.8 % (0.0-7.0); Hematocrit 33.3 % (41.0-53.0); Hemoglobin 10.6 g/dL (13.5-17.5); Lymphocytes # (auto) 1.9 10 ^3/uL (0.4-5.4); Lymphocytes % (auto) 20.3 % (10.0-50.0); Mean Corpuscular Hemoglobin 23.7 pg (28.0-32.0); Mean Corpuscular Hgb Conc. 31.8 g/dL (32.0-36.0); Mean Corpuscular Volume 74.7 fL (80.0-100.0); Monocytes # (auto) 0.5 10 ^3/uL (0-1.3); Monocytes % (auto) 5.7 % (0.0-12.0); Neutrophils # (auto) 6.6 10 ^3/uL (1.6-8.6); Neutrophils % (auto) 69.9 % (37.0-80.0); Nucleated Red Blood Cells % 0.2 %; Red Cell Distribution Width 18.1 % (11.8-14.3); White Blood Cell 9.4 10^3/uL (4.4-10.8)
[2022-12-27 04:57] LABS: BUN/Creatinine Ratio 16.2 (10.0-20.0); Potassium 3.8 mmol/L (3.5-5.1)
[2022-12-27] MEDS: VANCOMYCIN 1GM/250ML 250 ML IV SCH (05:12)
[2022-12-27] MEDS: ACCU-CHEK COMFORT CURVE STRIP VI SCH ×4 (05:19→23:24)
[2022-12-27] MEDS: LACTULOSE 20Gm/30ML SOLN NG SCH ×4 (05:46→23:24)
[2022-12-27] MEDS: InsuLIN REG 1unit/0.01ml Soln (100units/ml) SC SCH ×4 (05:47→23:28)
[2022-12-27] MEDS: traMADol HCL 50 MG TAB PO SCH ×3 (05:48→23:24)
[2022-12-27] MEDS: POTASSIUM CHL 10 Meq TABLET PO SCH (08:42)
[2022-12-27] MEDS: MULTIPLE VITAMIN TAB PO SCH (08:42)
[2022-12-27] MEDS: TAMSULOSIN HYDROCHLORIDE 0.4 MG CAP PO SCH (08:42)
[2022-12-27] MEDS: PANTOPRAZOLE 40 MG TAB PO SCH (08:43)
[2022-12-27] MEDS: GABAPENTIN 300 MG CAP PO SCH ×2 (08:43→21:39)
[2022-12-27] MEDS: SERTRALINE HCL 50 MG TAB PO SCH (08:43)
[2022-12-27] MEDS: LORATADINE 10 MG TAB PO SCH (08:43)
[2022-12-27] MEDS: ENOXAPARIN SOD 40 MG/0.4 ML SYRINGE SC SCH (08:45)
[2022-12-27] MEDS: GLIMEPIRIDE 2 MG TAB PO SCH ×2 (09:19→21:41)
[2022-12-27] MEDS: CEFTRIAXONE SODIUM 2 GM in D5W 5% 100 ML IV SCH (11:06)
[2022-12-27] MEDS ORDERED: diphenhdrAMINE HCL 50 MG/1 ML VL IV PRN (11:45)
[2022-12-27] MEDS: DOCUSATE SOD 100 MG CAP PO PRN (12:24)
[2022-12-27] MEDS: SODIUM CHLORIDE 0.9% 1,000 ML IV SCH (14:19)
[2022-12-27 15:48] LABS: INR 1.22 (0.9-1.15); Prothrombin Time 12.6 sec (9.3-11.8)
[2022-12-27] MEDS: ceFAZolin 2 GM/D5W100ml 100 ML IV SCH ×2 (16:00→21:40)
[2022-12-27] MEDS ORDERED: LIDOCAINE 1% (LOCAL ANESTH.) PF 5ml SDV ID ONE (18:15)
[2022-12-27] MEDS: SODIUM CHLOR 0.9% PF (SALINE LOCK) 10ML VIAL/SYR IV SCH (21:40)
[2022-12-28] MEDS: HYDROmorphone HCL 2 MG/ML VL/or syr IV PRN ×6 (02:15→21:21)
[2022-12-28 05:00] VITALS: BP 140/90; PULSE 85; RESP 18; TEMP 98.4; O2SAT 94
[2022-12-28] MEDS: LACTULOSE 20Gm/30ML SOLN NG SCH ×4 (05:26→23:10)
[2022-12-28] MEDS: ceFAZolin 2 GM/D5W100ml 100 ML IV SCH ×3 (05:26→21:11)
[2022-12-28] MEDS: InsuLIN REG 1unit/0.01ml Soln (100units/ml) SC SCH ×4 (05:27→23:16)
[2022-12-28] MEDS: ACCU-CHEK COMFORT CURVE STRIP VI SCH ×4 (05:27→23:09)
[2022-12-28] MEDS: traMADol HCL 50 MG TAB PO SCH ×3 (06:39→22:56)
[2022-12-28 07:46] VITALS: PULSE 80
[2022-12-28] MEDS: SERTRALINE HCL 50 MG TAB PO SCH (09:55)
[2022-12-28] MEDS: PANTOPRAZOLE 40 MG TAB PO SCH (09:55)
[2022-12-28] MEDS: POTASSIUM CHL 10 Meq TABLET PO SCH (09:55)
[2022-12-28] MEDS: MULTIPLE VITAMIN TAB PO SCH (09:55)
[2022-12-28] MEDS: LORATADINE 10 MG TAB PO SCH (09:55)
[2022-12-28] MEDS: GABAPENTIN 300 MG CAP PO SCH ×2 (09:55→21:10)
[2022-12-28] MEDS: SODIUM CHLOR 0.9% PF (SALINE LOCK) 10ML VIAL/SYR IV SCH ×2 (09:56→21:11)
[2022-12-28] MEDS: TAMSULOSIN HYDROCHLORIDE 0.4 MG CAP PO SCH (09:56)
[2022-12-28] MEDS: ENOXAPARIN SOD 40 MG/0.4 ML SYRINGE SC SCH (10:38)
[2022-12-28] MEDS: DOCUSATE SOD 100 MG CAP PO PRN (10:38)
[2022-12-28] MEDS: GLIMEPIRIDE 2 MG TAB PO SCH ×2 (10:38→21:22)
[2022-12-28] MEDS: SODIUM CHLORIDE 0.9% 1,000 ML IV SCH (11:49)
[2022-12-28 13:00] VITALS: BP 131/86; PULSE 81; RESP 16; TEMP 98.2; O2SAT 96
[2022-12-28 16:34] VITALS: BP 110/86; PULSE 92; RESP 18; TEMP 98.1; O2SAT 97
[2022-12-28 19:45] VITALS: PULSE 75; RESP 17; O2SAT 97
[2022-12-28 22:00] VITALS: BP 114/65; PULSE 75; RESP 17; O2SAT 97
[2022-12-29] VITALS (8 sets, daily range): BP systolic 110–127; BP diastolic 30–83; PULSE 75–103; RESP 17–20; TEMP 98.1–98.7; O2SAT 95–98
[2022-12-29] MEDS: HYDROmorphone HCL 2 MG/ML VL/or syr IV PRN ×7 (01:35→23:49)
[2022-12-29] MEDS: SODIUM CHLORIDE 0.9% 1,000 ML IV SCH ×2 (04:25→21:05)
[2022-12-29] MEDS: LACTULOSE 20Gm/30ML SOLN NG SCH ×3 (05:32→18:00)
[2022-12-29] MEDS: InsuLIN REG 1unit/0.01ml Soln (100units/ml) SC SCH ×4 (05:32→23:26)
[2022-12-29] MEDS: ACCU-CHEK COMFORT CURVE STRIP VI SCH ×4 (05:32→23:27)
[2022-12-29] MEDS: ceFAZolin 2 GM/D5W100ml 100 ML IV SCH ×3 (05:32→21:40)
[2022-12-29] MEDS: SODIUM CHLOR 0.9% PF (SALINE LOCK) 10ML VIAL/SYR IV SCH ×2 (09:31→22:00)
[2022-12-29] MEDS: MULTIPLE VITAMIN TAB PO SCH (09:31)
[2022-12-29] MEDS: TAMSULOSIN HYDROCHLORIDE 0.4 MG CAP PO SCH (09:32)
[2022-12-29] MEDS: LORATADINE 10 MG TAB PO SCH (09:32)
[2022-12-29] MEDS: PANTOPRAZOLE 40 MG TAB PO SCH (09:32)
[2022-12-29] MEDS: SERTRALINE HCL 50 MG TAB PO SCH (09:32)
[2022-12-29] MEDS: POTASSIUM CHL 10 Meq TABLET PO SCH (09:32)
[2022-12-29] MEDS: GABAPENTIN 300 MG CAP PO SCH ×2 (09:32→21:40)
[2022-12-29] MEDS: ENOXAPARIN SOD 40 MG/0.4 ML SYRINGE SC SCH (09:33)
[2022-12-29] MEDS: GLIMEPIRIDE 2 MG TAB PO SCH ×2 (09:37→21:53)
[2022-12-29] MEDS ORDERED: VANCOMYCIN PER PHARMACY 0 MG IV SCH (11:30)
[2022-12-29 13:27] LABS: Basophils # (auto) 0.1 10 ^3/uL (0-0.2); Basophils % (auto) 1.3 % (0.0-2.0); Eosinophils # (auto) 0.2 10 ^3/uL (0-0.8); Hemoglobin 11.5 g/dL (13.5-17.5)
[2022-12-29 13:29] LABS: Eosinophils % (auto) 2.2 % (0.0-7.0); Hematocrit 37.3 % (41.0-53.0); Lymphocytes # (auto) 2.3 10 ^3/uL (0.4-5.4); Lymphocytes % (auto) 24.5 % (10.0-50.0); Mean Corpuscular Hemoglobin 23.5 pg (28.0-32.0); Mean Corpuscular Hgb Conc. 30.8 g/dL (32.0-36.0); Mean Corpuscular Volume 76.3 fL (80.0-100.0); Monocytes # (auto) 0.5 10 ^3/uL (0-1.3); Monocytes % (auto) 5.6 % (0.0-12.0); Neutrophils # (auto) 6.1 10 ^3/uL (1.6-8.6); Neutrophils % (auto) 66.4 % (37.0-80.0); Red Blood Cells 4.89 10^6/uL (4.5-5.90); Red Cell Distribution Width 18.5 % (11.8-14.3); White Blood Cell 9.2 10^3/uL (4.4-10.8)
[2022-12-29] MEDS: VANCOMYCIN 1GM/250ML 250 ML IV SCH ×2 (13:35→19:51)
[2022-12-29 18:05] LABS: Potassium 3.6 mmol/L (3.5-5.1)
[2022-12-29 18:06] LABS: Anion Gap 9.2 (5-15); Calcium 9.8 mg/dL (8.5-10.1); Carbon Dioxide 25.8 mmol/L (20-30)
[2022-12-29 18:11] LABS: BUN/Creatinine Ratio 10.1 (10.0-20.0)
[2022-12-29 18:13] LABS: Albumin 4.1 g/dL (3.2-4.8); Phosphorus 3.5 mg/dL (2.4-5.1)
[2022-12-29] MEDS: oxyCODONE HCL 5MG TAB PO PRN (21:40)
[2022-12-29] MEDS: CYCLOBENZAPRINE HCL 10 MG TAB PO PRN (21:53)
[2022-12-30] MEDS: VANCOMYCIN 1GM/250ML 250 ML IV SCH ×4 (01:27→18:27)
[2022-12-30] MEDS: HYDROmorphone HCL 2 MG/ML VL/or syr IV PRN ×6 (04:52→23:57)
[2022-12-30 05:00] VITALS: BP 112/83; PULSE 101; RESP 18; TEMP 98.6; O2SAT 92
[2022-12-30] MEDS: LACTULOSE 20Gm/30ML SOLN NG SCH ×4 (06:00→18:26)
[2022-12-30] MEDS: InsuLIN REG 1unit/0.01ml Soln (100units/ml) SC SCH ×3 (06:00→18:00)
[2022-12-30] MEDS: ceFAZolin 2 GM/D5W100ml 100 ML IV SCH ×3 (06:46→22:02)
[2022-12-30] MEDS: ACCU-CHEK COMFORT CURVE STRIP VI SCH ×3 (06:53→18:27)
[2022-12-30 08:00] VITALS: BP 146/70; PULSE 100; PULSE 98; RESP 16; TEMP 98.4; O2SAT 89
[2022-12-30] MEDS: MULTIPLE VITAMIN TAB PO SCH (09:40)
[2022-12-30] MEDS: GABAPENTIN 300 MG CAP PO SCH ×2 (09:40→22:03)
[2022-12-30] MEDS: SERTRALINE HCL 50 MG TAB PO SCH (09:40)
[2022-12-30] MEDS: TAMSULOSIN HYDROCHLORIDE 0.4 MG CAP PO SCH (09:40)
[2022-12-30] MEDS: POTASSIUM CHL 10 Meq TABLET PO SCH (09:40)
[2022-12-30] MEDS: PANTOPRAZOLE 40 MG TAB PO SCH (09:41)
[2022-12-30] MEDS: LORATADINE 10 MG TAB PO SCH (09:41)
[2022-12-30] MEDS: GLIMEPIRIDE 2 MG TAB PO SCH ×2 (09:58→22:04)
[2022-12-30] MEDS: SODIUM CHLOR 0.9% PF (SALINE LOCK) 10ML VIAL/SYR IV SCH ×2 (09:58→22:04)
[2022-12-30 12:00] VITALS: BP 128/67; PULSE 95; RESP 21; TEMP 98; O2SAT 98
[2022-12-30] MEDS: SODIUM CHLORIDE 0.9% 1,000 ML IV SCH (13:45)
[2022-12-30 16:00] VITALS: BP 127/73; PULSE 93; RESP 20; TEMP 98.4; O2SAT 95
[2022-12-30 20:00] VITALS: PULSE 95
[2022-12-30 22:00] VITALS: BP 126/78; PULSE 105; RESP 19; TEMP 99.6; O2SAT 95
[2022-12-31] MEDS: ACCU-CHEK COMFORT CURVE STRIP VI SCH ×4 (00:04→16:58)
[2022-12-31] MEDS: VANCOMYCIN 1GM/250ML 250 ML IV SCH ×2 (01:02→06:53)
[2022-12-31] MEDS: oxyCODONE HCL 5MG TAB PO PRN ×3 (01:10→12:58)
[2022-12-31 05:00] VITALS: BP 108/75; PULSE 102; RESP 19; TEMP 98.7; O2SAT 92
[2022-12-31] MEDS: ceFAZolin 2 GM/D5W100ml 100 ML IV SCH ×2 (05:45→14:37)
[2022-12-31] MEDS: LACTULOSE 20Gm/30ML SOLN NG SCH ×4 (05:45→17:01)
[2022-12-31] MEDS: InsuLIN REG 1unit/0.01ml Soln (100units/ml) SC SCH ×4 (05:52→17:04)
[2022-12-31] MEDS: SODIUM CHLORIDE 0.9% 1,000 ML IV SCH (06:25)
[2022-12-31] MEDS: HYDROmorphone HCL 2 MG/ML VL/or syr IV PRN ×3 (07:00→16:19)
[2022-12-31 08:00] VITALS: BP 125/74; PULSE 91; PULSE 94; RESP 16; TEMP 97.8; O2SAT 98
[2022-12-31] MEDS: SODIUM CHLOR 0.9% PF (SALINE LOCK) 10ML VIAL/SYR IV SCH (10:00)
[2022-12-31] MEDS: LORATADINE 10 MG TAB PO SCH (10:47)
[2022-12-31] MEDS: MULTIPLE VITAMIN TAB PO SCH (10:47)
[2022-12-31] MEDS: PANTOPRAZOLE 40 MG TAB PO SCH (10:47)
[2022-12-31] MEDS: TAMSULOSIN HYDROCHLORIDE 0.4 MG CAP PO SCH (10:47)
[2022-12-31] MEDS: GABAPENTIN 300 MG CAP PO SCH (10:47)
[2022-12-31] MEDS: POTASSIUM CHL 10 Meq TABLET PO SCH (10:48)
[2022-12-31] MEDS: SERTRALINE HCL 50 MG TAB PO SCH (10:48)
[2022-12-31] MEDS: GLIMEPIRIDE 2 MG TAB PO SCH (11:25)
[2022-12-31 12:00] VITALS: BP 107/55; PULSE 89; RESP 18; TEMP 97.8; O2SAT 98
[2022-12-31 16:00] VITALS: BP 112/63; PULSE 91; RESP 18; TEMP 98.3; O2SAT 100
[2022-12-31 16:49] VITALS: BP 105/75; PULSE 94; RESP 16
== END 2022-12-31 18:41 | DRG 710 ==
LOC: ER 21:36 → EDBD 21:36 → TELE 12-18 02:09 → ICU WEST 12-18 03:47 → TELE-EAST 12-23 18:38
PROVIDERS: ADMIT Internal Medicine; ATTEND Internal Medicine
PROC: 5A1945Z Respiratory Ventilation, 24-96 Consecutive Hours (ICD-10-PCS; 2022-12-18)
PROC: 0BH17EZ Insertion of Endotracheal Airway into Trachea, Via Natural or Artificial Opening (ICD-10-PCS; 2022-12-18)
PROC: 05HB33Z Insertion of Infusion Device into Right Basilic Vein, Percutaneous Approach (ICD-10-PCS; 2022-12-18)
PROC: B54MZZA Ultrasonography of Right Upper Extremity Veins, Guidance (ICD-10-PCS; 2022-12-18)
PROC: 00NY0ZZ Release Lumbar Spinal Cord, Open Approach (ICD-10-PCS; principal; 2022-12-26)
PROC: 01NB0ZZ Release Lumbar Nerve, Open Approach (ICD-10-PCS; 2022-12-26)
PROC: 0SB30ZZ Excision of Lumbosacral Joint, Open Approach (ICD-10-PCS; 2022-12-26)
PROC: 009U0ZZ Drainage of Spinal Canal, Open Approach (ICD-10-PCS; 2022-12-26)
DX: A41.9 Sepsis, unspecified organism (principal); J96.01 Acute respiratory failure with hypoxia; R65.21 Severe sepsis with septic shock; J69.0 Pneumonitis due to inhalation of food and vomit; G06.1 Intraspinal abscess and granuloma; G92.8 Other toxic encephalopathy; I21.A1 Myocardial infarction type 2; J15.211 Pneumonia due to Methicillin susceptible Staphylococcus aureus; I27.20 Pulmonary hypertension, unspecified; F11.20 Opioid dependence, uncomplicated; E11.65 Type 2 diabetes mellitus with hyperglycemia; I16.0 Hypertensive urgency; E66.01 Morbid (severe) obesity due to excess calories; F10.20 Alcohol dependence, uncomplicated; I50.32 Chronic diastolic (congestive) heart failure; I11.0 Hypertensive heart disease with heart failure; F32.A Depression, unspecified; G89.29 Other chronic pain; J98.11 Atelectasis; R79.89 Other specified abnormal findings of blood chemistry; K21.9 Gastro-esophageal reflux disease without esophagitis; R33.9 Retention of urine, unspecified; R15.9 Full incontinence of feces; M19.90 Unspecified osteoarthritis, unspecified site; J45.909 Unspecified asthma, uncomplicated; M47.816 Spondylosis without myelopathy or radiculopathy, lumbar region; K59.00 Constipation, unspecified; E11.42 Type 2 diabetes mellitus with diabetic polyneuropathy; Z68.41 Body mass index [BMI] 40.0-44.9, adult; Z88.0 Allergy status to penicillin; Z79.4 Long term (current) use of insulin; Z83.3 Family history of diabetes mellitus; Z86.61 Personal history of infections of the central nervous system
CPT/HCPCS: 36415; 36569; 36600; 70450; 70551; 71045; 71275; 72148; 80048; 80053; 80069; 80202; 80307; 80320; 81001; 82140; 82565; 82805; 82962; 83036; 83605; 83735; 83880; 84484; 85025; 85379; 85610; 85730; 86850; 86900; 86901; 87040; 87070; 87075; 87077; 87081; 87186; 87205; 93005; 93306; 93970; 94002; 94003; 94640; 95819; 97110; 97163; 97530; 99152; 99153; 99291; G0378; J0131; J0696; J1100; J1815; J1956; J2250; J2405; J2543; J2704; J3490; J7060; Q9956

== ENCOUNTER 2023-04-10 10:34 | Emergency (ER) | payer MEDICAID ==
[~2023-04-10] VITALS: Ht 182.9 cm; Wt 127.5 kg
[~2023-04-10 10:34] MED LIST changes: -CIPR-173 PO; +SEMA2INJ3 SC; -TRAM50TA2 PO
[2023-04-10 10:49] VITALS: BP 127/65; PULSE 101; RESP 18; O2SAT 100
== END 2023-04-10 12:45 | disposition left against medical advice (07) ==
LOC: ER 10:34
DX: Z46.6 Encounter for fitting and adjustment of urinary device (principal); Z53.21 Procedure and treatment not carried out due to patient leaving prior to being seen by health care provider

== ENCOUNTER 2023-04-23 19:10 | Emergency (ER) | payer MEDICAID ==
[~2023-04-23] VITALS: Ht 182.9 cm; Wt 130.0 kg
[2023-04-23 19:47] VITALS: BP 120/56; PULSE 107; RESP 16; O2SAT 97
[2023-04-23 22:23] LABS: Urine Bacteria MOD /hpf (None Seen); Urine Blood 3+ /uL (Negative); Urine Budding Yeast FEW /hpf (None Seen); Urine Clarity HAZY (Clear); Urine Color Yellow (Yellow); Urine Protein, UAD 1+ (Negative); Urine Specific Gravity 1.025 (1.001-1.035); Urine WBC 217 /hpf (0 - 3)
== END 2023-04-23 20:50 | disposition left against medical advice (07) ==
LOC: ER 19:10
DX: T83.028A Displacement of other urinary catheter, initial encounter (principal); I11.0 Hypertensive heart disease with heart failure; I50.9 Heart failure, unspecified; K21.9 Gastro-esophageal reflux disease without esophagitis; J45.909 Unspecified asthma, uncomplicated; E66.01 Morbid (severe) obesity due to excess calories; Z68.38 Body mass index [BMI] 38.0-38.9, adult
CPT/HCPCS: 51702; 81001

== ENCOUNTER 2023-11-16 09:01 | Inpatient (IN) | payer MEDICAID ==
[2023-11-16] VITALS (7 sets, daily range): BP systolic 94–125; BP diastolic 69–80; PULSE 84–100; RESP 16–22; TEMP 97.3–98; O2SAT 96–98
[~2023-11-16] VITALS: Ht 193 cm; Wt 131.7 kg
[~2023-11-16 09:01] MED LIST changes: +LOSA-535 PO; -LOSA100T58 PO; +POTA-36 PO; -POTA10TA51 PO
[2023-11-16 09:41] LABS: Mean Corpuscular Volume 80.8 fL (80.0-100.0)
[2023-11-16 09:43] LABS: Hematocrit 40.9 % (41.0-53.0); Mean Corpuscular Hemoglobin 25.7 pg (28.0-32.0); Mean Corpuscular Hgb Conc. 31.8 g/dL (32.0-36.0); Red Blood Cells 5.06 10^6/uL (4.5-5.90); Red Cell Distribution Width 16.6 % (11.8-14.3); White Blood Cell 10.8 10^3/uL (4.4-10.8)
[2023-11-16] MEDS: ANGIOMAX 250 MG VIAL IV ONE (09:43)
[2023-11-16] MEDS: VERAPAMIL 2.5MG/ML INJ 2ML VIAL IV ONE (09:44)
[2023-11-16] MEDS: fentaNYL CITRATE 100 MCG/2 ML VL ONE (09:44)
[2023-11-16] MEDS: SODIUM CHL 0.9% 0 ML ONE (09:44)
[2023-11-16] MEDS: MIDAZOLAM HCL 2MG/2ML 2ml VIAL (1mg/ml) ONE (09:44)
[2023-11-16 09:45] LABS: Basophils % (manual) 0 (0.0-2.0); Blast Cells 0; Metamyelocytes % 0; Promyelocytes % 0; Reactive Lymphocytes 0
[2023-11-16] MEDS: IODIXANOL 320MG/ML 100ML BTL IV ONE (09:45)
[2023-11-16] MEDS: LIDOCAINE 2%HCL (LOCAL ANESTH.) INJ 20ML MDV ONE (09:45)
[2023-11-16] MEDS: LIDOCAINE 2%HCL (LOCAL ANESTH.) INJ 10ml MDV ONE (09:45)
[2023-11-16] MEDS: NITROGLYCERIN 50MG/250ML 250 ML IV ONE (09:48)
[2023-11-16] MEDS: CLOPIDOGREL BISULFATE 75 MG TAB PO ONE (09:51)
[2023-11-16] MEDS: HEPARIN SODIUM (PORCINE) 5000 UNITS/ML 1ML VIAL IV ONE (09:52)
[2023-11-16] MEDS: ASPirin 81 mg TAB PO ONE (09:52)
[2023-11-16] MEDS: HEPARIN SODIUM (PORCINE) 5000 UNITS/ML 1ML VIAL ONE (09:54)
[2023-11-16] MEDS ORDERED: DEXTROSE (50%) 50ML SYRG IV PRN (10:15)
[2023-11-16] MEDS ORDERED: ACETAMINOPHEN 325 MG TAB PO PRN (10:15)
[2023-11-16] MEDS ORDERED: ONDANSETRON HCL 4 MG/2 ML VIAL IV PRN (10:15)
[2023-11-16] MEDS ORDERED: NITROGLYCERIN 0.4 MG SL TAB SL PRN ×2 (10:15)
[2023-11-16] MEDS ORDERED: MORPHINE SULFATE INJ 2 MG/ml SYRG IV PRN (10:15)
[2023-11-16] MEDS ORDERED: MORPHINE SULFATE 4 MG/ML SYR/VIAL IV PRN (10:15)
[2023-11-16 10:27] LABS: Alanine Aminotransferase 21 U/L (7-40); Albumin 4.3 g/dL (3.2-4.8); Alkaline Phosphatase 77 U/L (46-116); Anion Gap 6 (5-15); Aspartate Aminotransferase 18 U/L (13-40); BUN/Creatinine Ratio 22.8 (10.0-20.0); Blood Urea Nitrogen 21 mg/dL (9-23); Calcium 10.2 mg/dL (8.5-10.1); Carbon Dioxide 23 mmol/L (20-30); Chloride 109 mmol/L (98-107); Glucose 162 mg/dL (74-106); Sodium 138 mmol/L (136-145)
[2023-11-16 10:28] LABS: Bilirubin, Total 0.3 mg/dL (0.2-1.0); Total Protein 7.3 g/dL (5.7-8.2)
[2023-11-16 10:35] LABS: INR 1.11 (0.9-1.15); Prothrombin Time 11.7 sec (9.3-11.8)
[2023-11-16 10:40] LABS: Urine Bacteria None Seen /hpf (None Seen)
[2023-11-16 11:12] LABS: Urine Blood 2+ /uL (Negative); Urine Clarity Clear (Clear); Urine Color Yellow (Yellow); Urine Mucus FEW (None Seen); Urine Protein, UAD TRACE (Negative); Urine Specific Gravity 1.028 (1.001-1.035); Urine Urobilinogen 3 mg/dL (Negative); Urine WBC 13 /hpf (0 - 3)
[2023-11-16 11:41] LABS: Band Neutrophils % (manual) 5; Eosinophils % (manual) 2 (0-7); Lymphocytes % (manual) 24 (10.0-50.0); Monocytes % (manual) 3 (0-12); Myelocytes % 1; Platelet Estimate Increased
[2023-11-16] MEDS: ACCU-CHEK COMFORT CURVE STRIP VI SCH (12:00)
[2023-11-16] MEDS: InsuLIN REG 1unit/0.01ml Soln (100units/ml) SC SCH (12:00)
[2023-11-16] MEDS ORDERED: ATORVASTATIN 20 MG TAB PO SCH (22:00)
[2023-11-17] MEDS ORDERED: CLOPIDOGREL BISULFATE 75 MG TAB PO SCH (10:00)
[2023-11-17] MEDS ORDERED: ASPirin 81 mg TAB PO SCH (10:00)
[2023-11-17] MEDS ORDERED: DOCUSATE SOD 100 MG CAP PO SCH (10:00)
== END 2023-11-16 14:50 | disposition left against medical advice (07) | DRG 190 ==
LOC: ER 09:01 → TELE 10:13 → TELE-CENTR 11:28
PROVIDERS: ADMIT Nurse Practitioner Family; ATTEND Nurse Practitioner Family
PROC: 4A023N7 Measurement of Cardiac Sampling and Pressure, Left Heart, Percutaneous Approach (ICD-10-PCS; principal; 2023-11-16)
PROC: B211YZZ Fluoroscopy of Multiple Coronary Arteries using Other Contrast (ICD-10-PCS; 2023-11-16)
DX: I21.09 ST elevation (STEMI) myocardial infarction involving other coronary artery of anterior wall (principal); I11.0 Hypertensive heart disease with heart failure; E11.9 Type 2 diabetes mellitus without complications; I50.9 Heart failure, unspecified; J45.909 Unspecified asthma, uncomplicated; K21.9 Gastro-esophageal reflux disease without esophagitis; I25.10 Atherosclerotic heart disease of native coronary artery without angina pectoris; E78.5 Hyperlipidemia, unspecified; Z88.0 Allergy status to penicillin; Z80.9 Family history of malignant neoplasm, unspecified
CPT/HCPCS: 36415; 71045; 80053; 81001; 84484; 85007; 85027; 85610; 86850; 86900; 86901; 93306; 93458; 96374; 99152; G0378; J2001; J2250; Q9967

== ENCOUNTER 2025-05-04 10:57 | Emergency (ER) | payer MEDICAID ==
[~2025-05-04] VITALS: Ht 154.9 cm; Wt 125.0 kg
[~2025-05-04 10:57] MED LIST changes: -LEV50T PO; +LEVO-848 PO
[2025-05-04 11:02] VITALS: BP 119/83; RESP 18; TEMP 97.5; O2SAT 100
[2025-05-04 11:45] VITALS: PULSE 110
[2025-05-04] MEDS ORDERED: SODIUM CHLORIDE 0.9% 1,000 ML IV ONE ×2 (11:45)
--- NOTE | 2025-05-04 11:45 | ED.PDOC ---
GI ASSESSMENT HPI Comments 49-year-old male with primary history of diabetes, GERD, hypertension, CHF, presents to the ED for chief complaint of epigastric pain associated with nausea and dry heaving that started 3 days ago. Patient describes pain as a burning sensation that is nonradiating, constant and has no alleviating factors. Patient presents type for headache with some sweats with the past couple of days. Patient denies any diarrhea, constipation, rectal bleeding, fever, chills. Patient did have a surgery to his spine after finding a mass 2-1/2 years ago and since has been urine incontinent. Chief Complaint: Abdominal Pain Time Seen by MD: 11:15 Primary Care Provider: UNKNOWN Reviewed Notes: Nurses Notes, Medications, Allergies Allergies: Coded Allergies: Penicillins (Verified Allergy, Mild, 12/27/22) itching and mild hives 20 years ago per patient Home Meds Active Scripts Gabapentin (Gabapentin) 600 Mg Tab, 600 MG PO BID, #30 TAB Prov:RIKI MEADOWS 12/10/22 Levothyroxine Sodium (SYNTHROID TABLET) 50 Mcg Tb, 1 TAB PO QAM, #60 TAB 0 Refills Prov:VARUN HOGAN MD 07/18/19 Chlorthalidone (Chlorthalidone) 50 Mg Tab, 50 MG PO QAM for 30 Days, #30 TAB Prov:VARUN HOGAN MD 07/18/19 Reported Medications Semaglutide (Ozempic) 2 Mg/3 Ml Inj, SC QWEEKLY, INJ 12/24/22 Potassium Chloride (POTASSIUM CHLORIDE CR) 10 Meq Tb, 1 TAB PO DAILY, #30 TAB 5 Refills 07/16/19 Insulin Glargine (Basaglar Kwikpen) 100 Unit/Ml Inj, 100 UNIT SC, INJ 07/16/19 Insulin Lispro (Insulin Lispro Kwikpen) 100 Unit/Ml Inj, 100 UNIT SC, INJ 07/16/19 Beclomethasone Dipropionate (Qvar Redihaler) 80 Mcg/Act Aer, 80 MCG IN, AER 07/16/19 Glimepiride (Glimepiride) 4 Mg Tab, 4 MG PO BID, MG 07/16/19 Atorvastatin Calcium (ATORVASTATIN CALCIUM) 10 Mg Tab, 1 TAB PO QPM, #30 TAB 5 Refills 07/16/19 Pantoprazole Sodium Sesquihydr (Pantoprazole Sodium Dr) 40 Mg Tab, 40 MG PO DAILY, TAB 07/16/19 Duloxetine Hcl (Cymbalta) 20 Mg Cap, 30 MG PO DAILY, CAP 07/16/19 Montelukast Sodium (MONTELUKAST SODIUM) 10 Mg Tab, 1 TAB PO DAILY, #30 TAB 5 Refills 07/16/19 Amlodipine Besylate (Amlodipine Besylate) 5 Mg Tab, 5 MG PO DAILY, MG 07/16/19 Sertraline Hcl (Sertraline Hcl) 50 Mg Tab, 100 MG PO DAILY for 30 Days, MG 07/16/19 Losartan Potassium (Losartan Potassium) 100 Mg Tab, 100 MG PO DAILY for 30 Days, MG 07/16/19 Metformin Hydrochloride (Metformin Hcl) 500 Mg Tab, 1000 MG PO BID for 30 Days, MG 07/16/19 Information Source: Patient, Spouse Mode of Arrival: Wheelchair Timing: Days (3) Duration: Since onset Quality: Burning Vomitus: None Stool: Normal Severity: Moderate Recent: None Recent Hx of: None Pain Location: Epigastric Modifying Factors: Nothing Associated sign and symptoms: Nausea, Abdominal Pain Past Medical History PAST MEDICAL HISTORY: Asthma, Cancer, CHF, DM, GERD, HTN, UTI'S Surgical History (Other): spine Family History Family History: Reviewed,noncontributory to illness, Family hx of Cancer Social History Smoker: Non-Smoker Alcohol: Occasionally Drugs: Denies Drug Use Lives In: Home Constitutional: reports: diaphoresis, sweats; denies: chills, fatigue, fever, m alaise, weakness, others EENTM: denies: blurred vision, double vision, ear bleeding, ear discharge, ear drainage, ear pain, ear ringing, eye pain, eye redness, hearing loss, mouth pain, mouth swelling, nasal discharge, nose bleeding, nose congestion, nose pain, photophobia, tearing, throat pain, throat swelling, voice changes, others Respiratory: denies: cough, hemoptysis, orthopnea, SOB at rest, shortness of breath, SOB with excertion, stridor, wheezing, others Cardiovascular: denies: chest pain, dizzy spells, diaphoresis, Dyspnea on exertion, edema, irregular heart beat, left arm pain, lightheadedness, palpitations, PND, syncope, others Gastrointestinal: reports: abdominal pain, nausea; denies: abdomen distended, blood streaked bowels, constipated, diarrhea, dysphagia, difficulty swallowing, hematemesis, melena, poor appetite, poor fluid intake, rectal bleeding, rectal pain, vomiting, others Genitourinary: denies: burning, dysuria, flank pain, frequency, hematuria, incontinence, penile discharge, penile sore, pain, testicle pain, testicle swelling, urgency, others Neurological: denies: dizziness, fainting, headache, left sided numbness, left sided weakness, numbness, paresthesia, pre-existing deficit, right sided numbness, right sided weakness, seizure, speech problems, tingling, tremors, weakness, others Musculoskeletal: denies: back pain, gout, joint pain, joint swelling, muscle pain, muscle stiffness, neck pain, others Integumetry: denies: bruises, change in color, change in hair/nails, dryness, laceration, lesions, lumps, rash, wounds, others Allergic/Immunocompromised: denies: Difficulty Healing, Frequent Infections, Hives, Itching, others Hematologic/Lymphatic: denies: anemia, blood clots, easy bleeding, easy bruising, swollen glands, others Endocrine: denies: excessive hunger, excessive sweating, excessive thirst, excessive urination, flushing, intolerance to cold, intolerance to heat, unexplained weight gain, unexplained weight loss, others Psychiatric: denies: anxiety, bipolar disorder, depression, hopeless, panic disorder, schizophrenia, sleepless, suicidal, others All Other Systems: Reviewed and Negative Physical Exam General Appearance: Moderate Distress HEENT: Normal ENT Inspection, Pharynx Normal, TMs Normal Neck: Full Range of Motion, Non-Tender, Normal, Normal Inspection Respiratory: Chest Non-Tender, Lungs Clear, No Accessory Muscle Use, No Respiratory Distress, Normal Breath Sounds Cardiovascular: No Edema, No JVD, No Murmur, No Gallop, Normal Peripheral Pulses, Regular Rate/Rhythm Breast Exam: Deferred Gastrointestinal: No Organomegaly, Non Tender, No Pulsatile Mass, Normal Bowel Sounds, Soft Genitalia: Deferred Pelvic: Deferred Rectal: Deferred Extremities: No calf tenderness, Normal capillary refill, Normal inspection, Normal range of motion, Non-tender, No pedal edema Musculoskeletal : Apperance: Normal Neurologic: Alert, 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 Was a procedure done?: No GI differential Dx Differential Diagnosis: Constipation, Diverticular disease, Esophagitis, Gastritis/PUD, Gastroenteritis, Electrolyte Imbalance, Viral, Esophageal Varicies, Stress Ulcer X-Ray, Labs, Meds, VS Vital Signs Date Time Temp Pulse Resp B/P (MAP) Pulse Ox O2 Delivery O2 Flow Rate FiO2 05/04/25 11:45 110 05/04/25 11:11 110 05/04/25 11:02 97.5 114 18 119/83 100 97.5 Patient alert. Came in because of abdominal pain. Vitals stable. Tachycardia. Saturation pristine on room air. He is perspiring. Establish intravenous access. Was given fluids. Explained to the patient that he will be admitted for further studies. Time of 1ST Reevaluation: 11:42 Reevaluation 1ST: Unchanged Patient Education/Counseling: Diagnosis, Treatment, Prognosis Family Education/Counseling: Diagnosis, Treatment, Prognosis SEPSIS Sepsis Screen Date sepsis recognized/suspect: May 04, 2025 Time Sepsis recognized/suspect: 1103 Recent Procedure: No On Antibiotic Therapy: No Respiratory Rate >20: No Heart Rate >90: Yes Temp<36 C (96.8 F) or >38.3 C: No SBP <90 or MAP <65 mmHG: No New Acute Mental Status Change: No Is the patient on CPAP, BIPAP,: No Physician Orders Electrocardigram (05/04/25 11:15) Chest Portable (05/04/25 11:32) Vital Signs Date Time Temp Pulse Resp B/P (MAP) Pulse Ox O2 Delivery O2 Flow Rate FiO2 05/04/25 11:45 110 05/04/25 11:11 110 05/04/25 11:02 97.5 114 18 119/83 100 97.5 Departure 1 Departure Time of Disposition: 17:41 Impression: Primary Impression: Acute abdominal pain Additional Impression: Non-specific colitis Disposition: ADMITTED INPATIENT Admit to: Med Surg Condition: Guarded Critical Care Note Critical Care Time?: No Stability Stability form required: No I personally scribed for KAMINI ZUNIGA MD ([email or web address]) on 05/04/25 at 11:45. Electronically submitted by Alejandra Carnes ([facility]). KAMINI ZUNIGA MD May 04, 2025 11:45
--- NOTE | 2025-05-04 12:31 | DVH ---
CHEST RADIOGRAPH INDICATION: sob TECHNIQUE: Single frontal view of the chest was obtained COMPARISON: XY CHEST PORTABLE on DOS: 11/16/23, XY CHEST XRAY 1 VIEW on DOS: 12/18/22, XY CHEST PORTABLE on DOS: 12/18/22 FINDINGS: Lines and Tubes: None Lungs: No focal consolidation. Pleura: No effusion. No pneumothorax. Cardiomediastinal contours: Unremarkable Bones: No acute osseous abnormality. IMPRESSION: 1. No acute cardiopulmonary disease. 2. No significant change from 12/18/2022.
--- NOTE | 2025-05-06 10:08 | ECG ---
[facility] Test Date: 2025-05-04 Test Time: 11:11:24 Pat Name: ANIL DEMARCO Department: Room: Gender: M Mailing Section Clerk: RAMILA : 1975 Requested By: EMERGENCY EMERGENCY Order Number: [id number] Reading MD: Measurements Intervals [place] Rate: 110 P: 54 VA: 154 QRS: 23 QRSD: 88 T: 232 QT: 328 QTc: 444 Interpretive Statements Sinus tachycardia Repol abnrm suggests ischemia, diffuse leads Baseline wander in lead(s) II,III,aVF,V3,V4,V5 Please click the below link to view image of tracing.
== END 2025-05-04 11:58 | disposition left against medical advice (07) ==
LOC: ER 10:57
DX: K52.9 Noninfective gastroenteritis and colitis, unspecified (principal); I11.0 Hypertensive heart disease with heart failure; I50.9 Heart failure, unspecified; E11.9 Type 2 diabetes mellitus without complications; J45.909 Unspecified asthma, uncomplicated; Z79.84 Long term (current) use of oral hypoglycemic drugs; Z79.899 Other long term (current) drug therapy; Z87.440 Personal history of urinary (tract) infections; Z88.0 Allergy status to penicillin
CPT/HCPCS: 71045; 93005